=== PATIENT | female | born 1950 | race Caucasian/White ===

== ENCOUNTER → 2017-05-09 | Outpatient (CLI) | payer MEDICARE, OTHER ==
[~2017-05-09] MED LIST: CALC500T42 PO; MULT1CAP41 PO
--- NOTE | 2017-05-09 14:31 | RADIOLOGY IMAGING REPORT ---
FACILITY: [facility] PATIENT NAME: Cristina Cannon : 1950 MR: [id number] V: [id number] EXAM DATE: ORDERING PHYSICIAN: ESTELLA BRITO TECHNOLOGIST: Location: [facility] Patient: Cristina Cannon : 1950 Visit/Account:[id number] Date of Sevice: 05/09/2017 DEXA Scan Clinical history: Osteoporosis. Comparison: DEXA scan from 05/05/2016. LUMBAR SPINE: The bone mineral density (BMD) measured from L1-L4 correlates with a Z-score of 0 and a T-score of -1 .8 which is osteopenia as defined by the World Health Organization. The corresponding risk of fractu re in the lumbar spine is 3-4 times increased compared with a young adult reference population. This value has decrease by 0.1 % since the prior study. More than 5% change is considered significant. HIP: Bone mineral density (BMD) measured in the LEFT total hip region correlates with a Z-score zero and a T-score of -1.5 which is osteopenia as defined by the World Health Organization. The corresponding risk of fracture in the hip is 3 times increased compared to a young adult reference population. This value has increased by 0.1 % since the prior study. More than 5% change is considered significant. T score left femoral neck -2 Bone mineral density (BMD) measured in the Femoral Neck region measures 0.765 g/cm?. IMPRESSION: 1. Lumbar spine: Osteopenia. There has been 0.1% decrease in the bone mineral density since the pre vious exam. 2. Left Total Hip: Osteopenia. There has been 0.1% increase in the bone mineral density since the p revious exam. 3. Femoral Neck: Bone Mineral Density is 0.765 g/cm? . T score of the left femoral neck -2 is consi stent with osteopenia. The next DEXA scan of this patient should include the following sites: L1-L4 and the left hip. FRAX? WHO Fracture Risk Assessment Tool link: <http://www.shef.ac.uk/FRAX/tool.jsp?locationValue=9> PLEASE NOTE: 1) The World Health Organization defines low BMD as follows: T-score Normal > -1 Osteopenia < -1 and > -2.5 Osteoporosis < -2.5 without fractures Established osteoporosis < -2.5 with fractures 2) In general, you may wish to consider: Diagnosis Treatment Follow-up DEXA Normal BMD Prevention 2-3 years Osteopenia Prevention/therapy 1-2 years Osteoporosis Therapy Yearly 3) Fracture risk estimated from the T-score is more accurate for vertebral fractures (often spontane ous) than for hip fractures. Report Dictated By: Abena Ayon MD at 05/09/2017 2:25 PM Report E-Signed By: Abena Ayon MD at 05/09/2017 2:27 PM WSN:[email or web address]
--- NOTE | 2017-05-09 16:24 | RADIOLOGY IMAGING REPORT ---
FACILITY: [facility] PATIENT NAME: ZEYAD BRIAN : [id number] MR: [id number] V: [id number] EXAM DATE: ORDERING PHYSICIAN: ESTELLA BRITO TECHNOLOGIST: Norma Singleton PROCEDURE:BILATERAL DIGITAL SCREENING MAMMOGRAM WITH CAD ASSISTED INTERPRETATION & 3D TOMOSYNTHESIS COMPARISON:Prior mammograms 05/05/16, 05/05/15, 04/14/14, 04/12/13, 05/17/12, 04/06/11. INDICATIONS:SCREENING FINDINGS: Moderately dense fibroglandular tissue is seen throughout the breasts. Most of the parenchymal pattern has remained stable allowing for difference in mammographic technique & patient positioning. There is a focal area of increased density posterior to mid nipple line Zone 2 on the Left MLO view for which Spot compression view is recommended. DIAGNOSTIC CATEGORY 0--INCOMPLETE: NEED ADDITIONAL IMAGING EVALUATION. RECOMMENDATIONS: ADDITIONAL MAMMOGRAPHIC VIEWS REQUIRED: LEFT BREAST. IMPRESSION: BIRADS 0: Incomplete Additional views of the Left breast recommended as described above. Dictated by: Abena Ayon M.D. on 05/09/2017 at 16:15 Transcribed by: EMMA on 05/09/2017 at 16:22 Approved by: Abena Ayon M.D. on 05/09/2017 at 16:23 [facility]
== END ==
LOC: MAMO 02:23
PROVIDERS: ATTEND Nurse Practitioner Family
DX: Z13.820 Encounter for screening for osteoporosis (principal); Z12.31 Encounter for screening mammogram for malignant neoplasm of breast; R92.8 Other abnormal and inconclusive findings on diagnostic imaging of breast; M85.89 Other specified disorders of bone density and structure, multiple sites
CPT/HCPCS: 77063; 77067; 77080

== ENCOUNTER → 2017-06-27 | Outpatient (CLI) | payer MEDICARE, OTHER ==
--- NOTE | 2017-06-27 13:17 | RADIOLOGY IMAGING REPORT ---
FACILITY: [facility] PATIENT NAME: ZEYAD BRIAN : [id number] MR: [id number] V: [id number] EXAM DATE: [id number] ORDERING PHYSICIAN: ESTELLA BRITO TECHNOLOGIST: Norma Singleton PROCEDURE:LEFT DIGITAL DIAGNOSTIC MAMMOGRAM WITH CAD ASSISTED INTERPRETATION & 3D TOMOSYNTHESIS COMPARISON:05/09/17 & priors back to 04/06/2011 INDICATIONS:further eval/Left breast asymmetry on screening mammogram FINDINGS: Breast parenchyma is heterogeneously dense. With additional imaging the asymmetry in the posterior Left breast appears to efface without a persisting discretely concerning finding. There is no architectural distortion or suspicious calcification. Given the lack of a persisting mammographic finding of concern, potential Ultrasound scheduled for today was deferred. DIAGNOSTIC CATEGORY 1--NEGATIVE. RECOMMENDATIONS: ROUTINE MAMMOGRAM AND CLINICAL EVALUATION. IMPRESSION: BIRADS 1: Negative. Dictated by: Tushar Donis on 06/27/2017 at 11:54 Transcribed by: JULIO CÉSAR on 06/27/2017 at 13:13 Approved by: Tushar Donis on 06/27/2017 at 13:16 [facility]
== END ==
LOC: MAMO 00:38
PROVIDERS: ATTEND Nurse Practitioner Family
DX: R92.2 Inconclusive mammogram (principal)
CPT/HCPCS: 77061; 77065

== ENCOUNTER → 2018-05-25 | Outpatient (CLI) | payer MEDICARE, OTHER ==
--- NOTE | 2018-05-25 10:57 | RADIOLOGY IMAGING REPORT ---
FACILITY: [facility] PATIENT NAME: Cristina Cannon : 1950 MR: [id number] V: [id number] EXAM DATE: ORDERING PHYSICIAN: ESTELLA BRITO TECHNOLOGIST: Location: [facility] Patient: Cristina Cannon : 1950 Visit/Account:[id number] Date of Sevice: 05/25/2018 DEXA Scan Clinical history: Osteopenia. Comparison: DEXA scan from 05/09/2017. LUMBAR SPINE: The bone mineral density (BMD) measured from L1-L4 correlates with a Z-score 0.2 and a T-score of -1 .7 which is osteopenia as defined by the World Health Organization. The corresponding risk of fractu re in the lumbar spine is 3-4 times compared with a young adult reference population. This value has increased by 0.5 % since the prior study. More than 5% change is considered significant. HIP: Bone mineral density (BMD) measured in the Left femoral neck region correlates with a Z-score 0.1 and a T-score of -1.8 which is osteopenia as defined by the World Health Organization. The correspond ing risk of fracture in the hip is 3-4 times compared with a young adult reference population. The to lindsey hip value has increased by 0.9 % since the prior study. More than 5% change is considered signif icant. Bone mineral density (BMD) measured in the Femoral Neck region measures 0.793 g/cm2. IMPRESSION: 1. Lumbar spine: Osteopenia. There has been No significant change in the bone mineral density since the previous exam. 2. Left Hip: Osteopenia. There has been No significant change in the bone mineral density of the to lindsey hip since the previous exam. 3. Femoral Neck: Bone Mineral Density is 0.793 g/cm2 The next DEXA scan of this patient should include the following sites: L1-L4 and the left hip. FRAX? WHO Fracture Risk Assessment Tool link: <http://www.shef.ac.uk/FRAX/tool.jsp?locationValue=9> PLEASE NOTE: 1) The World Health Organization defines low BMD as follows: T-score Normal > -1 Osteopenia < -1 and > -2.5 Osteoporosis < -2.5 without fractures Established osteoporosis < -2.5 with fractures 2) In general, you may wish to consider: Diagnosis Treatment Follow-up DEXA Normal BMD Prevention 2-3 years Osteopenia Prevention/therapy 1-2 years Osteoporosis Therapy Yearly 3) Fracture risk estimated from the T-score is more accurate for vertebral fractures (often spontane ous) than for hip fractures. Report Dictated By: Yoni Cardoso MD at 05/25/2018 10:51 AM Report E-Signed By: Yoni Cardoso MD at 05/25/2018 10:53 AM WSN:[email or web address]
--- NOTE | 2018-05-25 12:06 | RADIOLOGY IMAGING REPORT ---
FACILITY: [facility] PATIENT NAME: ZEYAD BRIAN : [id number] MR: [id number] V: [id number] EXAM DATE: [id number] ORDERING PHYSICIAN: ESTELLA BRITO TECHNOLOGIST: Ban Dempsey PROCEDURE:BILATERAL DIGITAL SCREENING MAMMOGRAM WITH CAD ASSISTED INTERPRETATION & 3D TOMOSYNTHESIS COMPARISON:Prior mammograms 06/27/17, 05/09/17, 05/05/16, 05/05/15, 04/14/14, 04/12/13. INDICATIONS:screening FINDINGS: The breasts are heterogeneously dense which can obscure small masses. The parenchymal pattern has remained stable allowing for difference in mammographic technique & patient positioning. DIAGNOSTIC CATEGORY 1--NEGATIVE. RECOMMENDATIONS: ROUTINE MAMMOGRAM AND CLINICAL EVALUATION. IMPRESSION: BIRADS 1: Negative. No significant abnormality is seen. Dictated by: Abena Ayon M.D. on 05/25/2018 at 10:15 Transcribed by: EMMA on 05/25/2018 at 10:52 Approved by: Abena Ayon M.D. on 05/25/2018 at 12:05 [facility]
== END ==
LOC: MAMO 02:13
PROVIDERS: ATTEND Nurse Practitioner Family
DX: Z13.820 Encounter for screening for osteoporosis (principal); Z12.31 Encounter for screening mammogram for malignant neoplasm of breast; M85.89 Other specified disorders of bone density and structure, multiple sites
CPT/HCPCS: 77063; 77067; 77080